=== PATIENT | male | born 1935 | race Caucasian/White ===

== ENCOUNTER 2020-12-09 10:23 | Emergency (ER) | payer MEDICARE, OTHER, SELFPAY ==
[2020-12-09] VITALS (8 sets, daily range): BP systolic 122–161; BP diastolic 72–79; PULSE 62–82; RESP 18; TEMP 36.6; O2SAT 96–99; BMI 25.7
--- NOTE | 2020-12-09 11:00 | DI.RAD.S_ITS ---
PROCEDURE: XR HIP W PEL IF DONE LT 2V INDICATIONS: atraumatic pain TECHNIQUE: AP pelvis with lateral view(s) of the left hip(s). COMPARISON: [facility], CR, XR KNEE LT 3V, 12/09/2020, 11:03. FINDINGS: Bones: No fractures or dislocations. Pelvic ring appears intact. No suspicious bony lesions. There is mild superior joint space narrowing seen of both hips, with associated remodeling changes with subchondral sclerosis and osteophyte formation. Soft tissues: The visualized bowel gas pattern is normal. No suspicious soft tissue calcifications. Atherosclerotic calcification is noted. IMPRESSION: Negative for fracture or dislocation by plain film. Mild bilateral hip degenerative change. Dictated by: Adair Harrison M.D. on 12/09/2020 at 10:39 Approved by: Adair Harrison M.D. on 12/09/2020 at 10:40
--- NOTE | 2020-12-09 11:00 | DI.RAD.S_ITS ---
PROCEDURE: XR KNEE LT 3V INDICATIONS: atraumatic pain TECHNIQUE: 3 views of the knee were acquired. COMPARISON: [facility], CR, XR HIP W PEL IF DONE LT 2V, 12/09/2020, 11:03. FINDINGS: Bones: No fractures or dislocations. No suspicious bony lesions. The knee joint spaces are relatively well preserved. Age-appropriate bony degenerative changes are seen. Soft tissues: No joint effusion. Calcification is seen along the joint line, which is attributed to meniscal calcification. Atherosclerotic calcification is noted. IMPRESSION: No significant plain film abnormality is seen for age, with note made of degenerative changes and apparent meniscal calcification. Dictated by: Adair Harrison M.D. on 12/09/2020 at 10:40 Approved by: Adair Harrison M.D. on 12/09/2020 at 10:41
[2020-12-09 13:50] LABS: Add Manual Diff / Slide Review NO; Basophils Absolute Auto 100 /uL (0-100); Basophils Percent Auto 1.3 % (0-2); Eosinophils Absolute Auto 0 /uL (0-450); Eosinophils Percent Auto 0.4 % (2-4); Hematocrit 43.2 % (41-53); Hemoglobin 14.5 g/dL (13.5-17.5); Lymphocytes Absolute Auto 1900 /uL (1100-4500); Lymphocytes Percent Auto 18.6 % (25-40); Mean Corpuscular HGB Conc 33.5 % (30-36); Mean Corpuscular Hemoglobin 32.8 PG (26-34); Mean Corpuscular Volume 98.2 fL (80-100); Monocytes Absolute Auto 1200 /uL (0-900); Monocytes Percent Auto 12.2 % (3-14); Neutrophils Absolute Auto 6900 /uL (1500-7000); Neutrophils Percent Auto 67.5 % (50-75); Platelet Count 150 X10^3/uL (150-400); Red Cell Distribution Width 14.3 % (11.6-14.8); White Blood Cell Count 10.1 X10^3/uL (4.5-11.0)
[2020-12-09 13:57] LABS: INR 2.8 (0.9-1.3); Prothrombin Time 32.1 SECONDS (10.1-12.7)
[2020-12-09 14:04] LABS: Alanine Aminotransferase 28 IU/L (<50); Albumin 4.9 g/dL (3.5-5.0); Albumin Globulin Ratio 1.4 (1.0-2.8); Alkaline Phosphatase 125 U/L (38-126); Aspartate Aminotransferase 36 IU/L (17-59); BUN Creatinine Ratio 26.8 (6-22); Bilirubin Total 1.9 mg/dL (0.2-1.3); Blood Urea Nitrogen 19 mg/dL (9-20); C-Reactive Protein Quant 2.5 mg/dL (<1.0); Calcium 9.7 mg/dL (8.4-10.2); Carbon Dioxide 27 mmol/L (22-32); Chloride 104 mmol/L (98-107); Estimated Glomerular Filt Rate > 60.0 mL/min (>60); Globulin 3.6 g/dL (1.7-4.1); Glucose 103 mg/dL (80-110); HEMOLYSIS < 15 (0-50); Sodium 139 mmol/L (137-145); Total Protein 8.5 g/dL (6.3-8.2)
[2020-12-09 14:07] LABS: Erythrocyte Sedimentation Rate 26 MM/HR (0-15)
--- NOTE | 2020-12-09 14:17 | ED_ITS ---
HPI - Extremity Problem General Chief complaint: Extremity Problem,Nontraumatic Stated complaint: Hip /knee Left pain Time Seen by Provider: 12/09/20 13:32 Source: patient and family Mode of arrival: Wheelchair Limitations: no limitations History of Present Illness HPI Narrative: Patient is an 85-year-old male with history of atrial fibrillation on Coumadin presenting with sudden onset of left leg pain. He says yesterday he was in his normal state of health he when out to dinner he does not remember any injury or falling. Throughout the night he had increasing pain worse when he turned over. It goes down his whole leg and starts in his hip area. He denies any fever or redness. Patient also has a history of polymyalgia rheumatica he is on 3 mg of prednisone daily which has been tapered down from 5 mg at at 0.5mg intervals Related Data Previous Rx's Medication Instructions Recorded gabapentin 300 mg capsule 300 mg PO BEDTIME #14 cap 12/09/20 hydrocodone 5 mg-acetaminophen 325 1 tab PO Q6H PRN #14 tab 12/09/20 mg tablet prednisone 10 mg tablet 10 mg PO DAILY #5 tab 12/09/20 Allergies Allergy/AdvReac Type Severity Reaction Status Date / Time No Known Drug Allergies Allergy Verified 12/09/20 10:59 Review of Systems Review of Systems ROS Unobtainable: All systems reviewed & are unremarkable except as noted in HPI and below Constitutional Constitutional: Denies body ache(s) and Denies chills Eyes Eyes: Denies blurry vision ENT Ears, Nose, Mouth, and Throat: Denies odynophagia Cardiovascular Cardiovascular: Denies chest pain and Denies irregular heart rhythm Respiratory Respiratory: Denies chest congestion and Denies cough Gastrointestinal Gastrointestinal: Denies abdominal pain, Denies nausea and Denies odynophagia Genitourinary Genitourinary: Denies urinary frequency Musculoskeletal Musculoskeletal: Reports as per HPI, Reports back pain, Denies deformity, Denies joint swelling, Reports muscle cramps, Reports muscle weakness and Denies numbness Integumentary/Breasts Skin/Breast: Denies rash and Denies skin pain Neurologic Neurologic: Denies numbness Patient History Social History Smoking Status: Former smoker Smoking Status: Former smoker alcohol intake frequency: a few times a week Substance Use Type: does not use Exam Initial Vital Signs Initial Vital Signs: Vital Signs Temperature 97.9 F 12/09/20 10:53 Pulse Rate 82 12/09/20 10:53 Respiratory Rate 18 12/09/20 10:53 Blood Pressure 122/79 12/09/20 10:53 Pulse Oximetry 96 12/09/20 10:53 GENERAL: Alert 85-year-old male HEENT: Head atraumatic,EOMI, pupils reactive, face symmetric, moist mucous membranes CARDIOVASCULAR: Regular rate and rhythm without murmurs, rubs or gallops. RESPIRATORY: Breath sounds equal bilaterally, no wheezes rales or rhonchi. ABDOMEN: Soft, nontender. Normoactive bowel sounds all 4 quadrants. No guarding or rebound. BACK: No vertebral tenderness no step-off, left buttock and flank pain EXTREMITIES: Normal range of motion, no clubbing or edema. Neurovascularly intact. Left hip tender to palpation no erythema no swelling. Pain with internal external rotation in hip. No erythema no swelling. Left knee mildly swollen without erythema he is able flex extend the knee without difficulty NEUROLOGICAL: Alert and oriented x4. Sensation to light touch intact SKIN: Warm, dry, no laceration, no petechiae, no rashes or lesions. Course Orders Ordered: Discontinued Medications Morphine Sulfate (Morphine 2 Mg/Ml Inj) 2 mg IV NOW ONE Stop: 12/09/20 14:30 Last Admin: 12/09/20 14:56 Dose: 2 mg Documented by: RONNIE Ondansetron HCl (Ondansetron 4 Mg/2 Ml Inj) 4 mg IV NOW ONE Stop: 12/09/20 14:30 Last Admin: 12/09/20 14:56 Dose: 4 mg Documented by: RONNIE Vital Signs Vital signs: Vital Signs - 8 hr 12/09/20 10:53 12/09/20 13:54 12/09/20 14:00 Temperature 97.9 F Pulse Rate 82 71 75 Respiratory Rate 18 Blood Pressure 122/79 159/78 H Pulse Oximetry 96 98 99 12/09/20 14:30 12/09/20 14:31 12/09/20 15:00 Temperature Pulse Rate 62 73 70 Respiratory Rate Blood Pressure 150/76 H Pulse Oximetry 98 98 96 MDM - Extremity (Nontraumatic) Lab Data Result diagrams: 12/09/20 13:45 12/09/20 13:45 Labs: Lab Results 12/09/20 12/09/20 12/09/20 Range/Units 13:45 13:45 13:45 WBC 10.1 (4.5-11.0) X10^3/uL RBC 4.40 L (4.5-5.9) X10^6/uL Hgb 14.5 (13.5-17.5) g/dL Hct 43.2 (41-53) % MCV 98.2 (80-100) fL MCH 32.8 (26-34) PG MCHC 33.5 (30-36) % RDW 14.3 (11.6-14.8) % Plt Count 150 (150-400) X10^3/uL Neut % (Auto) 67.5 (50-75) % Lymph % (Auto) 18.6 L (25-40) % [place] % (Auto) 12.2 (3-14) % Eos % (Auto) 0.4 L (2-4) % Baso % (Auto) 1.3 (0-2) % Neut # (Auto) 6900 (1475-2406) /uL Lymph # (Auto) 1900 (2977-4432) /uL [place] # (Auto) 1200 H (0-900) /uL Eos # (Auto) 0 (0-450) /uL Baso # (Auto) 100 (0-100) /uL ESR 26 H (0-15) MM/HR PT 32.1 H (10.1-12.7) SECONDS INR 2.8 H (0.9-1.3) Sodium 139 (137-145) mmol/L Potassium 4.0 (3.4-5.1) mmol/L Chloride 104 (98-107) mmol/L Carbon Dioxide 27 (22-32) mmol/L BUN 19 (9-20) mg/dL Creatinine 0.71 (0.66-1.25) mg/dL Estimated GFR > 60.0 (>60) mL/min BUN/Creatinine Ratio 26.8 H (6-22) Glucose 103 (80-110) mg/dL Calcium 9.7 (8.4-10.2) mg/dL Total Bilirubin 1.9 H (0.2-1.3) mg/dL AST 36 (17-59) IU/L ALT 28 (<50) IU/L Alkaline Phosphatase 125 (38-126) U/L C-Reactive Protein 2.5 H (<1.0) mg/dL Total Protein 8.5 H (6.3-8.2) g/dL Albumin 4.9 (3.5-5.0) g/dL Globulin 3.6 (1.7-4.1) g/dL Albumin/Globulin Ratio 1.4 (1.0-2.8) Urine RBC (0-5/HPF) Urine WBC (0-5/HPF) Ur Squamous Epith Cells (0-5/HPF) Urine Bacteria (None) Ur Culture Indicated? 12/09/20 Range/Units 15:22 WBC (4.5-11.0) X10^3/uL RBC (4.5-5.9) X10^6/uL Hgb (13.5-17.5) g/dL Hct (41-53) % MCV (80-100) fL MCH (26-34) PG MCHC (30-36) % RDW (11.6-14.8) % Plt Count (150-400) X10^3/uL Neut % (Auto) (50-75) % Lymph % (Auto) (25-40) % [place] % (Auto) (3-14) % Eos % (Auto) (2-4) % Baso % (Auto) (0-2) % Neut # (Auto) (9793-9876) /uL Lymph # (Auto) (9851-6955) /uL [place] # (Auto) (0-900) /uL Eos # (Auto) (0-450) /uL Baso # (Auto) (0-100) /uL ESR (0-15) MM/HR PT (10.1-12.7) SECONDS INR (0.9-1.3) Sodium (137-145) mmol/L Potassium (3.4-5.1) mmol/L Chloride (98-107) mmol/L Carbon Dioxide (22-32) mmol/L BUN (9-20) mg/dL Creatinine (0.66-1.25) mg/dL Estimated GFR (>60) mL/min BUN/Creatinine Ratio (6-22) Glucose (80-110) mg/dL Calcium (8.4-10.2) mg/dL Total Bilirubin (0.2-1.3) mg/dL AST (17-59) IU/L ALT (<50) IU/L Alkaline Phosphatase (38-126) U/L C-Reactive Protein (<1.0) mg/dL Total Protein (6.3-8.2) g/dL Albumin (3.5-5.0) g/dL Globulin (1.7-4.1) g/dL Albumin/Globulin Ratio (1.0-2.8) Urine RBC 0-1/hpf (0-5/HPF) Urine WBC 0-1/hpf (0-5/HPF) Ur Squamous Epith Cells 0-1 /hpf (0-5/HPF) Urine Bacteria None seen (None) Ur Culture Indicated? Cult not indicated Urine Dip Bedside Urine Glucose Negative Bedside Urine Bilirubin - Negative Bedside Urine Ketone - Negative Urine Specific [place] 1.025 Bedside Urine Occult Blood +/- Bedside Urine pH 6.0 Bedside Urine Protein - Negative Bedside Urine Urobilinogen - Negative Bedside Urine Nitrite - Negative Bedside Urine Leukocytes - Negative Esterase Imaging Data CT pelvis: Radiologist's Impression: PROCEDURE:? CT PEL WO CON ? INDICATIONS:? pain ? TECHNIQUE:? Noncontrast 3 mm axial sections acquired through the bony pelvis, with coronal and sagittal reformatting.? ? COMPARISON:? None. ? FINDINGS:? Image quality:? Excellent.? ? Bones:? Visualized osseous structures are intact.? No acute fracture or dislocation.? Diffuse osteopenia.? Moderate degenerative changes of the bilateral hips.? Lower lumbar spondylosis.? Mild degenerative changes of the bilateral sacroiliac joints. ? Soft tissues:? Fat containing umbilical hernia without acute inflammation.? Atherosclerotic calcifications of the abdominal aorta without aneurysmal dilatation.? Unremarkable appearance of the urinary bladder.? No acute abnormalities identified in the intraperitoneal structures.? Scattered colonic diverticulosis without acute diverticulitis.? No pelvic adenopathy.? No suspicious soft tissue calcifications. ? ? IMPRESSION:? ? CT pelvis without acute osseous abnormalities. ? Bilateral hip degenerative change. ? Lower lumbar spondylosis. ? Diffuse osteopenia. ? Colonic diverticulosis without acute diverticulitis. ? Atherosclerosis. ? Dictated by: Rodney Urban M.D. on 12/09/2020 at 15:06 ? ? CT Lumbar: Radiologist's Impression: PROCEDURE:? CT LUMBAR SPINE WO CON ? INDICATIONS:? pain ? TECHNIQUE:? Noncontrast 3 mm thick sections acquired from the T12 level to the sacrum.? Sagittal and coronal reformats were constructed.? For radiation dose reduction, the following was used:? automated exposure control.? ? COMPARISON:? None. ? FINDINGS:? Image quality:? Excellent.? ? Bones:? There is normal bony alignment.? No acute vertebral body compression fractures.? No suspicious lytic or blastic bony lesions.? No pars defects.? Diffuse osteopenia.? Multilevel degenerative changes throughout the imaged spine.? There are degenerative endplate changes, small endplate osteophytes, and minimal loss of disc height.? Moderate lower lumbar facet arthropathy.? There appears to be moderate spinal canal sten osis at L4-5. ? Soft tissues:? No retroperitoneal masses or hematomas.? Visualized aorta is normal in caliber.? Atherosclerosis.? Small hiatal hernia.? ? ? IMPRESSION:? ? 1. Diffuse osteopenia.? No acute fracture or malalignment of the lumbar spine. ? 2. Multilevel lumbar spondylosis with moderate spinal canal stenosis at L4-5.? ? ? Dictated by: Rodney Urban M.D. on 12/09/2020 at 15:00 ? Extremity x-ray #1: Radiologist's Impression: PROCEDURE:? XR HIP W PEL IF DONE LT 2V ? INDICATIONS:? atraumatic pain ? TECHNIQUE:? AP pelvis with lateral view(s) of the left hip(s).? ? COMPARISON:? [facility], CR, XR KNEE LT 3V, 12/09/2020, 11:03. ? FINDINGS:? ? Bones:? No fractures or dislocations.? Pelvic ring appears intact.? No suspiciou s bony lesions.? ? There is mild superior joint space narrowing seen of both hips, with associated remodeling changes with subchondral sclerosis and osteophyte formation.? ? Soft tissues:? The visualized bowel gas pattern is normal.? No suspicious soft tissue calcifications.? Atherosclerotic calcification is noted.? ? ? IMPRESSION:? Negative for fracture or dislocation by plain film. ? Mild bilateral hip degenerative change. ? Dictated by: Adair Harrison M.D. on 12/09/2020 at 10:39 ? Extremity x-ray #2: Radiologist's Impression: PROCEDURE:? XR KNEE LT 3V ? INDICATIONS:? atraumatic pain ? TECHNIQUE:? 3 views of the knee were acquired.? ? COMPARISON:? [facility], CR, XR HIP W PEL IF DONE LT 2V, 12/09/2020, 11:03. ? FINDINGS:? ? Bones:? No fractures or dislocations.? No suspicious bony lesions.? The knee joint spaces are relatively well preserved.? Age-appropriate bony degenerative changes are seen.? ? Soft tissues:? No joint effusion.? Calcification is seen along the joint line, which is attributed to meniscal calcification. Atherosclerotic calcification is noted.? ? ? IMPRESSION:? No significant plain film abnormality is seen for age, with note made of degenerative changes and apparent meniscal calcification. ? ? Dictated by: Adair Harrison M.D. on 12/09/2020 at 10:40 ? ? Approved by: Adair Harrison M.D. on 12/09/2020 at 10:41 MDM Narrative Medical decision making narrative: At this time there is no evidence of septic arthritis patient is afebrile and joints are not erythematous. He has no leukocytosis. Does have mild elevation of ESR CRP possibly from polymyalgia rheumatica. He is given morphine for pain. No significant back pain but severe tenderness in left hip with any kind of movement. CT shows she moderate canal stenosis at L4-L5 with multiple level lumbar spondylosis. Low suspicion for any cauda equina. He did urinate in the ER postvoid residual was 400 but he was lying down difficulty urinating. Patient is given morphine for pain. He is ambulatory in the emergency department with a walker after morphine. He is supposed to walk is daughter down the aisle tomorrow and is quite motivated to go home. She his support person is infectious disease physician we have gone over all options and strict return precautions. We all agree with treatment and plan of discharge. Discharge Plan Departure Patient Disposition: Home Clinical Impression: Sciatica Qualifiers: Laterality: left Qualified Code(s): M54.32 - Sciatica, left side Instructions: Sciatica Activity Restrictions/Additional Instructions: *You have been diagnosed with sciatic pain *What to do: At this time it appears that you probably have sciatic pain coming from her spine causing your discomfort. At this time we will increase her prednisone for a few days, then please discuss with your machine stone polisher in regards to tapering it down. Use walker or cane as needed. *Continue to take medications as directed Prednisone 10 mg once a day for 5 days start today Gabapentin 300 mg at night for nerve pain [place] 1 tablet every 6 hours if needed for severe pain *Follow up with your primary care provider in 2-3 days *Return to ER if you should have increasing pain, changes in bowel or bladder, inability to walk despite pain control any new, worsening or concerning symptoms Prescriptions: New prednisone 10 mg tablet 10 mg PO DAILY Qty: 5 RF: 0 gabapentin 300 mg capsule 300 mg PO BEDTIME Qty: 14 RF: 0 hydrocodone-acetaminophen 5-325 mg tablet 1 tab PO Q6H PRN (Reason: pain) Qty: 14 RF: 0
--- NOTE | 2020-12-09 14:29 | DI.CT.S_ITS ---
PROCEDURE: CT LUMBAR SPINE WO CON INDICATIONS: pain TECHNIQUE: Noncontrast 3 mm thick sections acquired from the T12 level to the sacrum. Sagittal and coronal reformats were constructed. For radiation dose reduction, the following was used: automated exposure control. COMPARISON: None. FINDINGS: Image quality: Excellent. Bones: There is normal bony alignment. No acute vertebral body compression fractures. No suspicious lytic or blastic bony lesions. No pars defects. Diffuse osteopenia. Multilevel degenerative changes throughout the imaged spine. There are degenerative endplate changes, small endplate osteophytes, and minimal loss of disc height. Moderate lower lumbar facet arthropathy. There appears to be moderate spinal canal stenosis at L4-5. Soft tissues: No retroperitoneal masses or hematomas. Visualized aorta is normal in caliber. Atherosclerosis. Small hiatal hernia. IMPRESSION: 1. Diffuse osteopenia. No acute fracture or malalignment of the lumbar spine. 2. Multilevel lumbar spondylosis with moderate spinal canal stenosis at L4-5. Dictated by: Rodney Urban M.D. on 12/09/2020 at 15:00 Approved by: Rodney Urban M.D. on 12/09/2020 at 15:04
--- NOTE | 2020-12-09 14:29 | DI.CT.S_ITS ---
PROCEDURE: CT PEL WO CON INDICATIONS: pain TECHNIQUE: Noncontrast 3 mm axial sections acquired through the bony pelvis, with coronal and sagittal reformatting. COMPARISON: None. FINDINGS: Image quality: Excellent. Bones: Visualized osseous structures are intact. No acute fracture or dislocation. Diffuse osteopenia. Moderate degenerative changes of the bilateral hips. Lower lumbar spondylosis. Mild degenerative changes of the bilateral sacroiliac joints. Soft tissues: Fat containing umbilical hernia without acute inflammation. Atherosclerotic calcifications of the abdominal aorta without aneurysmal dilatation. Unremarkable appearance of the urinary bladder. No acute abnormalities identified in the intraperitoneal structures. Scattered colonic diverticulosis without acute diverticulitis. No pelvic adenopathy. No suspicious soft tissue calcifications. IMPRESSION: CT pelvis without acute osseous abnormalities. Bilateral hip degenerative change. Lower lumbar spondylosis. Diffuse osteopenia. Colonic diverticulosis without acute diverticulitis. Atherosclerosis. Dictated by: Rodney Urban M.D. on 12/09/2020 at 15:06 Approved by: Rodney Urban M.D. on 12/09/2020 at 15:10
[2020-12-09] MEDS: ONDANSETRON 4 MG/2 ML INJ IV (14:56)
[2020-12-09] MEDS: MORPHINE 2 MG/ML INJ IV (14:56)
[2020-12-09 15:41] LABS: Bacteria Urine None Seen
[2020-12-09 15:52] LABS: Culture Indicated Urine Cult Not Indicated; RBC Urine 0-1/HPF (0-5/HPF); Squamous Epithelial Cell Urine 0-1 /HPF (0-5/HPF); WBC Urine 0-1/HPF (0-5/HPF)
--- NOTE | 2020-12-09 16:26 | PC.NURSE ---
Ambulated patient. Standing from bed was a little slow, but patient able to do so independently. Patient's walk out of the room and back was successful. Patient stated no weakness and little pain. Patient able to put legs back on bed with little assistance.
== END 2020-12-09 16:49 | disposition home or self-care (01) ==
PROVIDERS: Emergency Provider Emergency Medicine
DX: M54.32 Sciatica, left side (principal); M62.81 Muscle weakness (generalized)
CPT/HCPCS: 36415; 51798; 72131; 72192; 73502; 73562; 80053; 81003; 81015; 85025; 85610; 85651; 86140; 96374; 96375; 99284; J2270; J2405